=== PATIENT | female | born 1985 | race African-American/Black ===

== ENCOUNTER 2025-08-10 02:52 | Emergency (ER) | payer BC ==
[~2025-08-10] VITALS: Ht 175.3 cm; Wt 88.5 kg
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
[2025-08-10] MEDS ORDERED: ONDANSETRON HCL/PF 4 MG/2 ML VIAL ONE (03:08)
[2025-08-10] MEDS ORDERED: MORPHINE SULFATE INJ 4 MG/ML DISP.SYRIN ONE (03:09)
[2025-08-10] MEDS: MORPHINE SULFATE INJ 2 MG/ML DISP.SYRIN IV ONE (03:10)
[2025-08-10] MEDS: ONDANSETRON HCL/PF 4 MG/2 ML VIAL IV ONE (03:10)
--- NOTE | 2025-08-10 03:10 | NUR ---
IV ON RIGHT AC G20, BLOOD SPECIMEN SENT TO LAB
[2025-08-10 03:19] LABS: PLATELET COUNT (AUTO) 265 K/uL (150-450); RED BLOOD CELL COUNT(AUTO) 4.12 MIL/uL (4.0-5.2); RED CELL DISTRIBUTION WIDTH 12.8 % (11.5-15.0); WHITE BLOOD COUNT (AUTO) 10.9 K/uL (4.3-11.0)
[2025-08-10 03:22] LABS: CALCIUM, SERUM 9.2 mg/dL (8.5-10.1); CREATININE 0.9 mg/dL (0.6-1.3); SODIUM SERUM 136.0 mmol/L (136-145); UREA NITROGEN, BLOOD 15.0 mg/dL (7-18)
[2025-08-10 03:29] LABS: ASPARTATE AMINOTRANSFERASE 33.0 U/L (15-37); TOTAL PROTEIN, SERUM 8.3 g/dL (6.4-8.2)
[2025-08-10] MEDS: KETAMINE HCL(200MG/20ML) 10 MG/ML VIAL IV ONE (03:35)
[2025-08-10] MEDS: KETAMINE HCL(200MG/20ML) 10 MG/ML VIAL IV PRN (03:57)
[2025-08-10] MEDS ORDERED: SILVER SULFADIAZINE CREAM 25 GM TUBE ONE (04:01)
[2025-08-10] MEDS: SILVER SULFADIAZINE CREAM 25 GM TUBE TP ONE (04:04)
[2025-08-10] MEDS ORDERED: OXYC5TAB3 PO (04:06)
[2025-08-10] MEDS ORDERED: IBUP-1955 PO (04:06)
[2025-08-10] MEDS ORDERED: SILV50CR32 TP (04:06)
[2025-08-10] MEDS ORDERED: ACET-3102 PO (04:06)
--- NOTE | 2025-08-10 04:15 | NUR ---
Patient discharged to home in stable condition. Written and verbal after care instructions given. Patient verbalizes understanding of instruction.
[2025-08-10 04:17] VITALS: BP 120/75; TEMP 98; O2SAT 100
== END 2025-08-10 04:18 | disposition home or self-care (01) ==
LOC: ER 02:56
DX: T22.112A Burn of first degree of left forearm, initial encounter (principal); X11.8XXA Contact with other hot tap-water, initial encounter; Y93.89 Activity, other specified; Y92.89 Other specified places as the place of occurrence of the external cause; Y99.9 Unspecified external cause status
CPT/HCPCS: 99284; 96374; 96375; 85025; 83735; 36415; 80053; J2270; J2405